=== PATIENT | male | born 1935 | race Hispanic/Latino ===

== ENCOUNTER → 2017-05-22 | Outpatient (CLI) | payer OTHER ==
[~2017-05-22] MED LIST: IOPAMIDOL 300MG/ML 100 ML INFUS..BTL IV ONE
[2017-05-22 09:51] LABS: BLOOD UREA NITROGEN 12 mg/dL (7-26); BUN/CREATININE RATIO 15 (6-25); CREATININE, SERUM 0.79 mg/dL (0.72-1.25); EST GLOMERULAR FILTRATION RATE > 60 ML/MIN (60-)
--- NOTE | 2017-05-22 11:15 | Diagnostic Imaging Report ---
PROCEDURE:INTRAVENOUS PYELOGRAM (IVP) INDICATION:Hydronephrosis; calculus of kidney COMPARISON:None. TECHNIQUE:Sequential static radiographs of the abdomen were obtained after administration of 100 mL Isovue-300 intravenous contrast. FINDINGS: Medication Reconciliation Technician: No irregular calcifications. Normal bowel gas pattern. Symmetric, rapid uptake and excretion of intravenous contrast. Normal renal contour and caliber. Ureters are patent bilaterally and of normal caliber. Minimal post void residual volume. CONCLUSION: No acute abnormality. Specifically, no conspicuous renal stones. No ureteral obstruction. Minimal post void residual volume. Dictated by: Sohail Robertson M.D. on 05/22/2017 at 11:14 Electronically approved by: Sohail Robertson M.D. on 05/22/2017 at 11:14
== END ==
LOC: DX 07:41
PROVIDERS: ATTEND Urology
DX: N20.1 Calculus of ureter (principal); N13.30 Unspecified hydronephrosis
CPT/HCPCS: 36415; 74400; 82565; 84520; Q9967

== ENCOUNTER → 2017-09-14 | Outpatient (CLI) | payer OTHER ==
--- NOTE | 2017-09-14 12:31 | Diagnostic Imaging Report ---
PROCEDURE:ABDOMEN-1VIEW (KUB) TECHNIQUE:Supine AP abdomen totaling 2 radiographs INDICATION:Followup kidney stones. COMPARISON:Patients [facility], DX, INTRAVENOUS PYELOGRAM (IVP), 05/22/2017, 9:51. FINDINGS: No conspicuous nephrolithiasis. Normal bowel gas pattern. Intact skeleton with multilevel degenerative disease. Hip osteoarthritis. CONCLUSION: 1. No conspicuous nephrolithiasis. 2. No acute abnormality. Dictated by: Sohail Robertson M.D. on 09/14/2017 at 12:35 Electronically approved by: Sohail Robertson M.D. on 09/14/2017 at 12:35
== END ==
LOC: RAD 11:01
PROVIDERS: ATTEND Urology
DX: N20.0 Calculus of kidney (principal)
CPT/HCPCS: 74018